=== PATIENT | female | born 1970 | race Two or more races ===

== ENCOUNTER 2024-12-07 18:54 | Emergency (ER) | payer MEDICAID, OTHER ==
[~2024-12-07] VITALS: Ht 170.2 cm; Wt 77.1 kg
--- NOTE | 2024-12-07 19:22 | ED.PDOC ---
History of Present Illness HPI Comments 54 y/o F, with a history of DM - diet controlled, presents from her PCP's office for c/o HTN, tachycardia, headache, left-eye blurry vision, and numbness sensation to left-upper arm and lower leg, today. Patient reports visiting her PCP, earlier, for follow-up after injuring her left-hand when a stack of boxes fell on it, while working. She then was reported to have been found hypertensive and tachycardic and recommended to come to the ED for higher-level of care. She endorses on having other aforementioned symptoms for the past few days. Denies any recent injuries, sick contact, travel, or any further significant history. Reports taking no medications for her DM and managing it with diet. Denies any chest pain, shortness of breath, dizziness, palpitations, or other associated symptoms at this time. Upon arrival to ED, patient had a blood glucose of 261 and a blood pressure of 157/98. Chief Complaint: Headache Time Seen by MD: 19:00 Reviewed Notes: Nurses Notes, Medications, Allergies Information Source: Patient Mode of Arrival: Ambulatory Severity: Moderate Timing: Hours Duration: Since onset Prehospital treatment: None Past Medical History PAST MEDICAL HISTORY: DM (diet controlled ) Surgical History: Denies all surgeries MIX CHEMIST History: Denies all MIX CHEMIST Hx Family History Family History: Unknown Social History Smoker: Non-Smoker Alcohol: Denies ETOH Use Drugs: Denies Drug Use Lives In: Home All Other Systems: Reviewed and Negative (Comprehensive systems review obtained and negative except for what is stated in the HPI.) Physical Exam General Appearance: No Apparent Distress, Normal HEENT: Normal ENT Inspection, Pharynx Normal, TMs Normal Neck: Full Range of Motion, Non-Tender, Normal, Normal Inspection Respiratory: Chest Non-Tender, Lungs Clear, No Accessory Muscle Use, No Respiratory Distress, Normal Breath Sounds Cardiovascular: No Edema, No JVD, No Murmur, No Gallop, Normal Peripheral Pulses, Regular Rate/Rhythm Breast Exam: Deferred Gastrointestinal: No Organomegaly, Non Tender, No Pulsatile Mass, Normal Bowel Sounds, Soft Genitalia: Deferred Pelvic: Deferred Rectal: Deferred Extremities: No calf tenderness, Normal capillary refill, Normal range of motion, Non-tender, No pedal edema, Other (Left-pinky injury dressing in place, otherwise normal inspection ) Musculoskeletal : Apperance: Normal Neurologic: Alert, 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 Was a procedure done?: No EKG EKG : Pulse Rate (adult): 119 [place]: Normal Cardiac Rhythm: ST Block: None Hypertrophy: None ST: Normal Differential Dx Considerations may include: hyperglycemia, DKA, HTN new onset, medication noncompliance, viral syndrome, vertigo, electrolyte imbalance, dehydration, among others X-Ray, Labs, Meds, VS Vital Signs Date Time Temp Pulse Resp B/P (MAP) Pulse Ox O2 Delivery O2 Flow Rate FiO2 12/07/24 19:22 119 12/07/24 19:10 119 12/07/24 19:06 98.0 11 18 157/98 (117) 97 98.0 Lab Test 12/07/24 20:31 12/07/24 19:32 12/07/24 19:07 Range/Units Troponin I High Sensitivity < 3 L < 3 L </=34 ng/L White Blood Count 10.1 4.4-10.8 10^3/uL Red Blood Count 5.23 H 4.0-5.20 10^6/uL Hemoglobin 15.4 12.2-16.2 g/dL Hematocrit 45.6 36.0-46.0 % Mean Corpuscular Volume 87.3 80.0-100.0 fL Mean Corpuscular Hemoglobin 29.4 28.0-32.0 pg Mean Corpuscular Hemoglobin Concent 33.7 32.0-36.0 g/dL Red Cell Distribution Width 12.9 11.8-14.3 % Platelet Count 274 140-450 10^3/uL Mean Platelet Volume 9.1 6.9-10.8 fL Neutrophils (%) (Auto) 65.5 37.0-80.0 % Lymphocytes (%) (Auto) 28.2 10.0-50.0 % Monocytes (%) (Auto) 4.0 0.0-12.0 % Eosinophils (%) (Auto) 1.4 0.0-7.0 % Basophils (%) (Auto) 0.9 0.0-2.0 % Neutrophils # (Auto) 6.6 1.6-8.6 10 ^3/uL Lymphocytes # (Auto) 2.9 0.4-5.4 10 ^3/uL Monocytes # (Auto) 0.4 0-1.3 10 ^3/uL Eosinophils # (Auto) 0.1 0-0.8 10 ^3/uL Basophils # (Auto) 0.1 0-0.2 10 ^3/uL Nucleated Red Blood Cells 0.1 % Sodium Level 136 136-145 mmol/L Potassium Level 3.6 3.5-5.1 mmol/L Chloride Level 100 98-107 mmol/L Carbon Dioxide Level 26 20-31 mmol/L Anion Gap 10 5-15 Blood Urea Nitrogen 12 9-23 mg/dL Creatinine 0.60 0.550-1.02 mg/dL Glomerular Filtration Rate Calc 107 >90 mL/min BUN/Creatinine Ratio 20.0 10.0-20.0 Serum Glucose 266 H 74-106 mg/dL Calcium Level 10.1 8.7-10.4 mg/dL POC Glucose 261 H 70-106 mg/dl [place] [address] Ph: [phone] DIAGNOSTIC IMAGING Diagnostic Imaging Report : [id number] Signed PATIENT: DARYA MOTLEY ACCT: [id number] UNIT: [id number] : 1970 LOC: ER ROOM / BED: / AGE / SEX: 54 / F ADM STATUS: REG ER SERVICE 06 ORDERING PHYSICIAN: KAUSHAL DUDLEY MD PROCEDURE(s): CXRP - CHEST PORTABLE REASON: parasthesias ORDER NUMBER(s): [id number], ACCESSION NUMBER(s): [id number] CHEST RADIOGRAPH Indication: parasthesias Technique: Single frontal view of the chest was obtained Comparison: None FINDINGS: Lines and Tubes: None Lungs: No focal consolidation. Pleura: No effusion. No pneumothorax. Cardiomediastinal contours: Unremarkable Bones: No acute osseous abnormality. IMPRESSION: 1. No acute cardiopulmonary disease. ATED BY: MEGA ALANIZ Jr., DO DICTATED DATE/TIME: 12/07/241927 SIGNED BY: MEGA ALANIZ Jr., DO SIGNED DATE/TIME: 12/07/241927 CC: [place] [address] Ph: [phone] DIAGNOSTIC IMAGING Diagnostic Imaging Report : [id number] Signed PATIENT: DARYA MOTLEY ACCT: [id number] UNIT: [id number] : 1970 LOC: ER ROOM / BED: / AGE / SEX: 54 / F ADM STATUS: REG ER SERVICE 06 ORDERING PHYSICIAN: KAUSHAL DUDLEY MD PROCEDURE(s): HWOCT - HEAD WITHOUT CONTRAST REASON: parasthesias ORDER NUMBER(s): [id number], ACCESSION NUMBER(s): [id number] EXAM: CT Head Without Intravenous Contrast CLINICAL INDICATION: parasthesias TECHNIQUE: Axial computed tomography images of the head/brain without intravenous contrast. This CT exam was performed using one or more of the following dose reduction techniques: automated exposure control, adjustment of the mA and/or kV according to patient size, and/or use of iterative reconstruction technique. CONTRAST: RADIATION DOSE: CTDIvol = 49.77 mGy, DLP = 798.09 mGy-cm COMPARISON: None FINDINGS: BRAIN AND EXTRA-AXIAL SPACES: No acute intracranial hemorrhage, midline shift or mass effect. If symptoms persist, further evaluation with MRI is recommended. No significant white matter disease. BONES/JOINTS: Unremarkable. No acute fracture. SOFT TISSUES: Unremarkable. SINUSES: Unremarkable as visualized. No acute sinusitis. MASTOID AIR CELLS: Unremarkable as visualized. No mastoid effusion. OTHER FINDINGS: . . IMPRESSION: No acute intracranial hemorrhage, midline shift or mass effect. If symptoms persist, further evaluation with MRI is recommended. ATED BY: NABOR HART MD DICTATED DATE/TIME: 12/07/241958 SIGNED BY: NABOR HART MD SIGNED DATE/TIME: 12/07/241958 CC: Time of 1ST Reevaluation: 19:30 Reevaluation 1ST: Unchanged Patient Education/Counseling: Diagnosis, Treatment Family Education/Counseling: No Family Present Additional Information Previous visits: N/A The following tests were ordered, and results were reviewed by me: EKG, troponin, CXR, CT head w/o contrast, UA, CBC, BMP Additional Information was gathered from interviewing the following independent historians: N/A I reviewed and agreed with the following test results read by other providers: CXR, CT head w/o contrast I discussed treatment and results with medical personnel and: Patient Departure 1 Departure Time of Disposition: 22:56 (Patient likely with paresthesias secondary to migraine and/or electrolyte abnormality. Patient without findings for acute CVA or TIA. We will discharge patient home with outpatient follow up) Impression: Primary Impression: Paresthesias Additional Impression: Migraine Qualified Codes: G43.109 - Migraine with aura, not intractable, without sta tus migrainosus Disposition: HOME / SELF CARE / HOMELESS Condition: Stable Additional Instructions: Your workup today was benign. It is important to follow up with Peng this week. Please call for an appointment tomorrow morning. If your symptoms worsen or you have any other concerns please return [facility] room. Discharged With: Self Critical Care Note Critical Care Time?: No Stability Stability form required: No Heart Score Heart Score: Heart Score Response (Comments) Value History N/A 0 EKG N/A 0 Age N/A 0 Risk Factors N/A 0 Troponin N/A 0 Total 0 I personally scribed for KAUSHAL DUDLEY MD ([email or web address]) on 12/07/24 at 19:22. Electronically submitted by Prieto Chan ([email or web address]). I personally scribed for KAUSHAL DUDLEY MD ([email or web address]) on 12/07/24 at 20:13. Electronically submitted by Prieto Chan ([email or web address]). KAUSHAL DUDLEY MD Dec 07, 2024 19:22
--- NOTE | 2024-12-07 19:30 | DVH ---
CHEST RADIOGRAPH Indication: parasthesias Technique: Single frontal view of the chest was obtained Comparison: None FINDINGS: Lines and Tubes: None Lungs: No focal consolidation. Pleura: No effusion. No pneumothorax. Cardiomediastinal contours: Unremarkable Bones: No acute osseous abnormality. IMPRESSION: 1. No acute cardiopulmonary disease.
[2024-12-07 19:48] LABS: Basophils # (auto) 0.1 10 ^3/uL (0-0.2); Basophils % (auto) 0.9 % (0.0-2.0); Eosinophils # (auto) 0.1 10 ^3/uL (0-0.8); Eosinophils % (auto) 1.4 % (0.0-7.0); Hematocrit 45.6 % (36.0-46.0); Hemoglobin 15.4 g/dL (12.2-16.2); Lymphocytes # (auto) 2.9 10 ^3/uL (0.4-5.4); Lymphocytes % (auto) 28.2 % (10.0-50.0); Mean Corpuscular Hemoglobin 29.4 pg (28.0-32.0); Mean Corpuscular Hgb Conc. 33.7 g/dL (32.0-36.0); Mean Corpuscular Volume 87.3 fL (80.0-100.0); Monocytes # (auto) 0.4 10 ^3/uL (0-1.3); Neutrophils # (auto) 6.6 10 ^3/uL (1.6-8.6); Neutrophils % (auto) 65.5 % (37.0-80.0); Nucleated Red Blood Cells % 0.1 %; Platelet Count (auto) 274 10^3/uL (140-450); Red Blood Cells 5.23 10^6/uL (4.0-5.20); Red Cell Distribution Width 12.9 % (11.8-14.3); White Blood Cell 10.1 10^3/uL (4.4-10.8)
--- NOTE | 2024-12-07 20:01 | DVH ---
EXAM: CT Head Without Intravenous Contrast CLINICAL INDICATION: parasthesias TECHNIQUE: Axial computed tomography images of the head/brain without intravenous contrast. This CT exam was performed using one or more of the following dose reduction techniques: automated exposure control, adjustment of the mA and/or kV according to patient size, and/or use of iterative reconstru ction technique. CONTRAST: RADIATION DOSE: CTDIvol = 49.77 mGy, DLP = 798.09 mGy-cm COMPARISON: None FINDINGS: BRAIN AND EXTRA-AXIAL SPACES: No acute intracranial hemorrhage, midline shift or mass effect. If sy mptoms persist, further evaluation with MRI is recommended. No significant white matter disease. BONES/JOINTS: Unremarkable. No acute fracture. SOFT TISSUES: Unremarkable. SINUSES: Unremarkable as visualized. No acute sinusitis. MASTOID AIR CELLS: Unremarkable as visualized. No mastoid effusion. OTHER FINDINGS: . . IMPRESSION: No acute intracranial hemorrhage, midline shift or mass effect. If symptoms persist, further evaluat ion with MRI is recommended.
[2024-12-07 20:02] LABS: Chloride 100 mmol/L (98-107); Potassium 3.6 mmol/L (3.5-5.1); Sodium 136 mmol/L (136-145)
[2024-12-07 20:03] LABS: Anion Gap 10 (5-15); Carbon Dioxide 26 mmol/L (20-31)
[2024-12-07 20:04] LABS: Calcium 10.1 mg/dL (8.7-10.4)
[2024-12-07 20:09] LABS: Blood Urea Nitrogen 12 mg/dL (9-23); Glucose 266 mg/dL (74-106)
[2024-12-07] MEDS ORDERED: SODIUM CHLORIDE 0.9% 1,000 ML IV ONE (21:15)
[2024-12-08 01:07] VITALS: BP 126/82; PULSE 81; RESP 16; TEMP 98.2; O2SAT 96
--- NOTE | 2024-12-08 07:00 | ECG ---
[facility] Test Date: 2024-12-07 Test Time: 19:10:30 Pat Name: DARYA MOTLEY Department: ER Room: Gender: F Die Maker Stamping: GP : 1970 Requested By: KAUSHAL DUDLEY Order Number: [id number] Reading MD: Dennis Ocampo Measurements Intervals [place] Rate: 119 P: 72 [place]: 146 QRS: -4 QRSD: 95 T: 42 QT: 330 QTc: 465 Interpretive Statements Sinus tachycardia Anterior infarct, old Baseline wander in lead(s) II,III,aVF,V1,V4,V6 Electronically Signed On 12-09-2024 17:08:58 PDT by Dennis Ocampo Please click the below link to view image of tracing.
== END 2024-12-08 01:08 | disposition home or self-care (01) ==
LOC: ER 18:54
DX: G43.109 Migraine with aura, not intractable, without status migrainosus (principal); R20.2 Paresthesia of skin; I10 Essential (primary) hypertension; E11.9 Type 2 diabetes mellitus without complications; I25.2 Old myocardial infarction
CPT/HCPCS: 36415; 70450; 71045; 80048; 82947; 82962; 84484; 85025; 93005